=== PATIENT | male | born 1980 | race Hispanic/Latino ===

== ENCOUNTER 2021-03-05 23:05 | Emergency (ER) | payer OTHER ==
[~2021-03-05] VITALS: Ht 182.9 cm; Wt 122.5 kg
[2021-03-05 23:16] VITALS: BP 154/98
[2021-03-06] MEDS ORDERED: LIDOCAINE HCL 2% VISCOUS 15 ML UDCUP PO ONE
[2021-03-06] MEDS ORDERED: MAG/ALUM/SIMETH 30 ML UDCUP PO ONE
== END 2021-03-06 00:10 | disposition home or self-care (01) ==
LOC: EDH 23:05
DX: B34.9 Viral infection, unspecified (principal); Z20.822 Contact with and (suspected) exposure to COVID-19; E11.9 Type 2 diabetes mellitus without complications
CPT/HCPCS: 87635; 87804 ×2; 87880; 99283; C9803